=== PATIENT | female | born 1990 | race Two or more races ===

== ENCOUNTER 2018-06-13 10:52 | Inpatient (IN) | payer BC ==
[2018-06-13] MEDS ORDERED: OXYTOCIN 30 UNITS/LR 500 ML IV ×3 (11:30→13:30)
[2018-06-13] MEDS ORDERED: MISOPROSTOL 200 MCG TAB PR ×2 (11:30→13:30)
[2018-06-13] MEDS ORDERED: CARBOPROST 250 MCG INJ IM ×2 (11:30→13:30)
[2018-06-13] MEDS ORDERED: METHYLERGONOVINE 0.2 MG INJ IM ×2 (11:30→13:30)
[2018-06-13] MEDS: LACTATED RINGER'S 1,000 ML IV ×3 (11:58→21:27)
[2018-06-13 12:07] LABS: ADD MAN DIFF? NO
[2018-06-13 12:14] LABS: WHITE BLOOD COUNT 7.7 10^3/ul (4.8-10.8)
[2018-06-13 12:14] LABS: BASOPHILS % 0.6 % (0.0-2.0); EOSINOPHILS % 0.9 % (0.0-7.0); HEMATOCRIT 37.7 % (37.0-47.0); HEMOGLOBIN 12.6 g/dl (12.0-16.0); LYMPHOCYTES % 28.3 % (15.0-51.0); MEAN CORPUSCULAR HEMOGLOBIN 30.1 pg (29.0-33.0); MEAN CORPUSCULAR HGB CONC 33.4 g/dl (32.0-37.0); MEAN PLATELET VOLUME 10.5 fl (7.4-10.4); MONOCYTES % 7.2 % (0.0-11.0); NEUTROPHILS % 59.1 % (39.0-77.0); PLATELET COUNT 152 10^3/UL (140-415); RED BLOOD COUNT 4.19 10^6/ul (4.20-5.40); RED CELL DISTRIBUTION WIDTH 14.5 % (11.5-14.5)
[2018-06-13 12:15] LABS: BASOPHIL # 0.1 10^3/ul (0.0-0.1); EOSINOPHILS # 0.1 10^3/ul (0.0-0.5); LYMPHOCYTES # 2.2 10^3/ul (0.8-2.9); MONOCYTE # 0.6 10^3/ul (0.3-0.9); NEUTROPHIL # 4.6 10^3/ul (1.6-7.5)
[2018-06-13] MEDS ORDERED: CITRIC ACID/NA CITRATE 30 ML CUP (12:21)
[2018-06-13 12:34] LABS: INR 0.93; PROTIME 12.5 Sec (11.9-14.9)
[2018-06-13 12:35] LABS: PARTIAL THROMBOPLASTIN TIME 23.4 Sec (23.0-35.0)
[2018-06-13] MEDS: CITRIC ACID/NA CITRATE 30 ML CUP PO (13:02)
[2018-06-13] MEDS ORDERED: KETOROLAC 30 MG INJ (13:07)
[2018-06-13] MEDS ORDERED: ONDANSETRON 4 MG INJ (13:07)
[2018-06-13] MEDS ORDERED: morphine SULFATE/PF (10 MG/10 ML) INJ (13:07)
[2018-06-13] MEDS ORDERED: METOCLOPRAMIDE 10 MG INJ (13:07)
[2018-06-13 13:08] LABS: HEPATITIS B SURFACE ANTIGEN NEGATIVE (NEGATIVE)
[2018-06-13] MEDS ORDERED: BUPIVACAINE 0.75%/DEXT (SPINAL) 2 ML INJ (13:11)
[2018-06-13] MEDS: CEFAZOLIN 2 GM/50 ML (PMX) 50 ML IV ×2 (13:24→22:01)
[2018-06-13] MEDS ORDERED: CEFAZOLIN 2 GM/50 ML (PMX) 50 ML IV (13:30)
[2018-06-13] MEDS ORDERED: METHYLERGONOVINE 0.2 MG TAB PO (13:30)
[2018-06-13] MEDS ORDERED: NA PHOSPHATE/BIPHOS 133 ML ENEMA PR (13:30)
[2018-06-13] MEDS ORDERED: LANOLIN 7 GM TUBE TOP (13:30)
[2018-06-13] MEDS ORDERED: EPHEDrine SULFATE 50 MG/5 ML SYG (13:53)
[2018-06-13] MEDS ORDERED: FAMOTIDINE 20 MG INJ (14:01)
[2018-06-13] MEDS ORDERED: ONDANSETRON 4 MG INJ IV ×2 (15:00→16:00)
[2018-06-13] MEDS ORDERED: morphine (1 MG/ML) 10ML SYRINGE IV ×3 (15:00)
[2018-06-13] MEDS ORDERED: NALOXONE (0.4 MG/ML) INJ IV (16:00)
[2018-06-13] MEDS ORDERED: KETOROLAC 30 MG INJ IV (16:00)
[2018-06-13] MEDS ORDERED: HYDROmorphONE 0.5 MG/0.5 ML SYG IV ×2 (16:00)
[2018-06-13] MEDS ORDERED: morphine 2 MG INJ IV ×2 (16:00)
[2018-06-13 16:29] LABS: RAPID PLASMA REAGIN NONREACTIVE (NR)
[2018-06-13] MEDS: DIPHENHYDRAMINE 50 MG INJ IV (16:45)
[2018-06-13] MEDS: OXYTOCIN 30 UNITS/LR 500 ML IV (16:48)
[2018-06-13] MEDS: KETOROLAC 30 MG INJ IV (18:12)
[2018-06-13] MEDS: SENNA/DOCUSATE NA (8.6MG/50MG) TAB PO (21:07)
[2018-06-14] MEDS: KETOROLAC 30 MG INJ IV ×5 (01:23→19:28)
[2018-06-14] MEDS: DIPHENHYDRAMINE 50 MG INJ IV (01:55)
[2018-06-14] MEDS: LACTATED RINGER'S 1,000 ML IV ×4 (03:04→21:27)
[2018-06-14] MEDS: CEFAZOLIN 2 GM/50 ML (PMX) 50 ML IV ×2 (06:29→12:44)
[2018-06-14 08:29] LABS: ADD MAN DIFF? NO
[2018-06-14 08:33] LABS: WHITE BLOOD COUNT 7.9 10^3/ul (4.8-10.8)
[2018-06-14 08:33] LABS: BASOPHILS % 0.4 % (0.0-2.0); EOSINOPHILS # 0.1 10^3/ul (0.0-0.5); EOSINOPHILS % 0.8 % (0.0-7.0); HEMATOCRIT 33.7 % (37.0-47.0); HEMOGLOBIN 11.6 g/dl (12.0-16.0); LYMPHOCYTES # 1.2 10^3/ul (0.8-2.9); LYMPHOCYTES % 15.1 % (15.0-51.0); MEAN CORPUSCULAR HEMOGLOBIN 31.1 pg (29.0-33.0); MEAN CORPUSCULAR HGB CONC 34.4 g/dl (32.0-37.0); MEAN CORPUSCULAR VOLUME 90.3 fl (82.0-101.0); MEAN PLATELET VOLUME 10.5 fl (7.4-10.4); MONOCYTE # 0.8 10^3/ul (0.3-0.9); NEUTROPHIL # 5.7 10^3/ul (1.6-7.5); NEUTROPHILS % 72.2 % (39.0-77.0); PLATELET COUNT 125 10^3/UL (140-415); RED BLOOD COUNT 3.73 10^6/ul (4.20-5.40); RED CELL DISTRIBUTION WIDTH 14.6 % (11.5-14.5)
[2018-06-14] MEDS: SENNA/DOCUSATE NA (8.6MG/50MG) TAB PO ×2 (09:05→21:32)
[2018-06-14] MEDS: LEVOTHYROXINE 50 MCG TAB PO (09:05)
[2018-06-14] MEDS: HYDROCODONE/APAP (5/325) TAB PO (23:43)
[2018-06-15] MEDS: LACTATED RINGER'S 1,000 ML IV (05:27)
[2018-06-15] MEDS: SENNA/DOCUSATE NA (8.6MG/50MG) TAB PO ×2 (09:03→20:48)
[2018-06-15] MEDS: LEVOTHYROXINE 50 MCG TAB PO (09:04)
[2018-06-15] MEDS: HYDROCODONE/APAP (5/325) TAB PO ×4 (09:04→23:11)
[2018-06-15] MEDS: BISACODYL 10 MG SUPP PR (18:53)
[2018-06-16] MEDS: HYDROCODONE/APAP (5/325) TAB PO ×2 (04:39→08:58)
[2018-06-16] MEDS: LEVOTHYROXINE 50 MCG TAB PO (08:58)
[2018-06-16] MEDS: SENNA/DOCUSATE NA (8.6MG/50MG) TAB PO (08:58)
[2018-06-16] MEDS: DIPHTH/TET/ACEL PERTUSS (ADULT) 0.5 ML VIAL IM* (09:02)
[2018-06-16] MEDS: INFLUENZA VIRUS VACCINE 0.5 ML (DISPENSING) IM* (09:02)
== END 2018-06-16 16:05 | disposition home or self-care (01) | DRG 788 ==
LOC: L-D 10:52 → PP1 17:29
PROVIDERS: Obstetrics & Gynecology
PROC: 10D00Z1 Extraction of Products of Conception, Low, Open Approach (ICD-10-PCS; principal; 2018-06-13 12:30)
DX: O34.211 Maternal care for low transverse scar from previous cesarean delivery (principal); O69.81X0 Labor and delivery complicated by cord around neck, without compression, not applicable or unspecified; Z3A.39 39 weeks gestation of pregnancy; Z37.0 Single live birth
CPT/HCPCS: 85025; 85610; 85730; 86592; 86850; 86900; 86901; 87340; 90686; 90715; 99464